=== PATIENT | male | born 1995 | race Caucasian/White ===

== ENCOUNTER 2016-07-15 20:11 | Emergency (ER) | payer BC ==
[~2016-07-15] VITALS: Ht 177.8 cm; Wt 73.3 kg
[2016-07-15 20:15] VITALS: BP 140/84; PULSE 84; RESP 18; TEMP 97.7; O2SAT 99
[2016-07-15] MEDS ORDERED: SODIUM CHLOR 0.9% 1000 ML INJ 1,000 ML IV ONE ×2 (20:45)
[2016-07-15] MEDS ORDERED: DEXAMETHASONE SOD PHOS 4 MG/ML VIAL IV PUSH ONE (20:45)
[2016-07-15] MEDS ORDERED: ONDANSETRON HCL 4 MG/2 ML VIAL IV PUSH ONE (20:45)
[2016-07-15] MEDS ORDERED: KETOROLAC TROMETHAMINE 30 MG/ML (IVP) VIAL IV PUSH ONE (20:45)
--- NOTE | 2016-07-15 20:51 | PD ---
HPI Chief Complaint: GI Complaint Time Seen by Provider: 20:38 Travel History International Travel<30 days: No Contact w/Intl Traveler<30days: No Traveled to known affect area: No History of Present Illness HPI 20-year-old male complaining of vomiting and sore throat. He went to an urgent care center yesterday and was told that he had mono. He is given prescription for Zofran but does not been able to hold it down. Having a sore throat and has not been able to drink very much. He says that he has vomited about 5 times. He denies abdominal pain. Says that he's been sick for about 5 days. He is generally healthy. He had a throat culture yesterday which was negative [facility] Social History Tobacco Use: No Allergies-Medications (Allergen,Severity, Reaction): Coded Allergies: Morphine (Verified Allergy, Severe, Anaphylaxis, 07/15/16) Reported Meds & Prescriptions Reported Meds & Active Scripts Active Reported Motrin Ib (Ibuprofen) 200 Mg Tab 200 Mg PO Q4H PRN Zofran (Ondansetron HCl) 4 Mg Tab 4 Mg PO Q6HR PRN Review of Systems General / Constitutional: Positive: Fever, Chills Eyes: No: Diploplia, Blurred Vision HENT: Positive: Sore Throat Cardiovascular: No: Chest Pain or Discomfort, Palpitations Respiratory: No: Cough, Shortness of Breath Gastrointestinal: Positive: Nausea, Vomiting Genitourinary: No: Urgency, Frequency Musculoskeletal: No: Myalgias Skin: No Rash Neurologic: No: Weakness Endocrine: No: Heat Intolerance, Cold Intolerance Hematologic/Lymphatic: No: Easy Bruising Physical Exam Narrative GENERAL: Well-developed male SKIN: Focused skin assessment warm/dry. HEAD: Atraumatic. Normocephalic. EYES: Pupils equal and round. No scleral icterus. No injection or drainage. ENT: No nasal bleeding or discharge. Mucous membranes pink and moist. Posterior pharynx is erythematous. Tonsils enlarged NECK: Trachea midline. No JVD. CARDIOVASCULAR: Regular rate and rhythm. No murmur appreciated. RESPIRATORY: No accessory muscle use. Clear to auscultation. Breath sounds equal bilaterally. GASTROINTESTINAL: Abdomen soft, non-tender, nondistended. Hepatic and splenic margins not palpable. MUSCULOSKELETAL: No obvious deformities. No clubbing. No cyanosis. No edema. NEUROLOGICAL: Awake and alert. No obvious cranial nerve deficits. Motor grossly within normal limits. Normal speech. PSYCHIATRIC: Appropriate mood and affect; insight and judgment normal. Data Data Last Documented VS Vital Signs Date Time Temp Pulse Resp B/P Pulse Ox O2 Delivery O2 Flow Rate FiO2 07/15/16 21:52 98 20 119/57 Room Air 98 07/15/16 20:15 97.7 99 Orders Complete Blood Count With Diff (07/15/16 20:45) Comprehensive Metabolic Panel (07/15/16 20:45) Monoscreen (07/15/16 20:45) Sodium Chlor 0.9% 1000 Ml Inj (Ns 1000 M (07/15/16 20:45) Sodium Chlor 0.9% 1000 Ml Inj (Ns 1000 M (07/15/16 20:45) Ondansetron Inj (Zofran Inj) (07/15/16 20:45) Dexamethasone Inj (Decadron Inj) (07/15/16 20:45) Ketorolac Inj (Toradol Inj) (07/15/16 20:45) Potassium Chloride (Kcl) (07/15/16 22:00) Ct Abd/Pel W Iv Contrast(Rout) (07/15/16 22:02) Iohexol 350 Inj (Omnipaque 350 Inj) (07/15/16 22:47) Labs Laboratory Tests Test 07/15/16 21:05 White Blood Count 13.4 TH/MM3 Red Blood Count 5.22 MIL/MM3 Hemoglobin 15.1 GM/DL Hematocrit 46.2 % Mean Corpuscular Volume 88.5 FL Mean Corpuscular Hemoglobin 29.0 PG Mean Corpuscular Hemoglobin 32.7 % Concent Red Cell Distribution Width 12.7 % Platelet Count 97 TH/MM3 Mean Platelet Volume 9.9 FL Neutrophils (%) (Auto) % Lymphocytes (%) (Auto) % Monocytes (%) (Auto) % Eosinophils (%) (Auto) % Basophils (%) (Auto) % Neutrophils # (Auto) TH/MM3 Lymphocytes # (Auto) TH/MM3 Monocytes # (Auto) TH/MM3 Eosinophils # (Auto) TH/MM3 Basophils # (Auto) TH/MM3 CBC Comment AUTO DIFF Differential Total Cells 100 Counted Neutrophils % (Manual) 17 % Lymphocytes % 56 % Monocytes % 10 % Neutrophils # (Manual) 2.3 TH/MM3 Differential Comment FINAL DIFF MANUAL Atypical Lymphocytes 17 % Platelet Estimate NORMAL Platelet Morphology Comment NORMAL Red Cell Morphology Comment NORMAL Sodium Level 138 MEQ/L Potassium Level 3.5 MEQ/L Chloride Level 103 MEQ/L Carbon Dioxide Level 24.5 MEQ/L Anion Gap 11 MEQ/L Blood Urea Nitrogen 9 MG/DL Creatinine 1.20 MG/DL Estimat Glomerular Filtration 78 ML/MIN Rate Random Glucose 95 MG/DL Calcium Level 9.0 MG/DL Total Bilirubin 3.5 MG/DL Aspartate Amino Transf 217 U/L (AST/SGOT) Alanine Aminotransferase 335 U/L (ALT/SGPT) Alkaline Phosphatase 344 U/L Total Protein 7.9 GM/DL Albumin 3.8 GM/DL Monoscreen POS MDM Medical Decision Making Medical Screen Exam Complete: Yes Emergency Medical Condition: Yes Medical Record Reviewed: Yes Differential Diagnosis Differential includes mononucleosis, splenomegaly, Narrative Course Patient does have abnormal liver function tests with bilirubin of 3.5, AST of [address] ALT of 335. CT scan T scan does not show any evidence of biliary obstruction. I believe he has hepatitis secondary to his mononucleosis. CT scan also shows splenomegaly. Explained to the patient I believe the hepatitis and splenomegaly is certainly contributing to his nausea. He does have prescription for Zofran. He'll be released with recommendations to continue the Zofran lots of fluids. Instructed to return if abdominal pain and is displaying could certainly rupture. Diagnosis Primary Impression: Mononucleosis Additional Impressions: Splenomegaly Hepatitis Disposition: 01 DISCHARGE HOME Condition: Stable Alex Del Cid MD Jul 15, 2016 20:51
[2016-07-15 21:27] LABS: HEMATOCRIT 46.2 % (39.0-51.0); MEAN CELL VOLUME 88.5 FL (80.0-100.0); MEAN CORPUSCULAR HGB CONC 32.7 % (32.0-36.0); PLATELET COUNT 97 TH/MM3 (150-450); RED BLOOD COUNT 5.22 MIL/MM3 (4.50-5.90); RED CELL DISTRIBUTION WIDTH 12.7 % (11.6-17.2); WHITE BLOOD COUNT 13.4 TH/MM3 (4.0-11.0)
[2016-07-15 21:48] LABS: CHLORIDE 103 MEQ/L (98-107); HEMO FLAGS AUTO DIFF; POTASSIUM 3.5 MEQ/L (3.5-5.1); SODIUM (NA) 138 MEQ/L (136-145)
[2016-07-15 21:52] VITALS: BP 119/57; PULSE 98; RESP 20
[2016-07-15 21:52] LABS: ANION GAP 11 MEQ/L (5-15); BICARBONATE 24.5 MEQ/L (21.0-32.0); BLOOD UREA NITROGEN 9 MG/DL (7-18)
[2016-07-15 21:55] LABS: ALT (GPT) 335 U/L (9-52); AST (GOT) 217 U/L (15-39); GLOMERULAR FILTRATION RATE 78 ML/MIN (>89)
[2016-07-15 21:56] LABS: TOTAL BILIRUBIN ADULT 3.5 MG/DL (0.2-1.0)
[2016-07-15 21:58] LABS: ALKALINE PHOSPHATASE 344 U/L (45-117)
[2016-07-15] MEDS ORDERED: POTASSIUM CHLORIDE 10 MEQ CONTROLLED RELEASE TAB PO ONE (22:00)
[2016-07-15 22:18] LABS: ATYPICAL LYMPHOCYTES 17 % (0-0); NEUTROPHIL # MANUAL DIFF 2.3 TH/MM3 (1.8-7.7); POLYS (SEG NEUTROPHILS) 17 % (16-70); WBC DIFF SAMPLE 100
[2016-07-15 22:19] LABS: PLATELET ESTIMATE SMEAR NORMAL (NORMAL); PLATELET MORPHOLOGY NORMAL (NORMAL); SCAN/DIFF FINAL DIFF MANUAL
[2016-07-15 22:30] VITALS: BP 123/64; PULSE 86; RESP 18; TEMP 98.4; O2SAT 98
[2016-07-15] MEDS ORDERED: MOTR200T4 PO (22:37)
[2016-07-15] MEDS ORDERED: ZOFR4TAB PO (22:37)
[2016-07-15] MEDS ORDERED: IOHEXOL 350 MG/ML 10 ML VIAL (for RAD DIAG) IV ONE (22:47)
--- NOTE | 2016-07-15 22:51 | RADHPO ---
EXAM DATE/TIME: 07/15/2016 22:22 [place] COMPARISON: No previous studies available for comparison. INDICATIONS : Nausea. Vomiting. Abnormal liver function test. IV CONTRAST: 100 cc Omnipaque 350 (iohexol) IV ORAL CONTRAST: No oral contrast ingested. RADIATION DOSE: 8.32 CTDIvol (mGy) MEDICAL HISTORY : None SURGICAL HISTORY : Appendectomy. ENCOUNTER: Initial ACUITY: 4 - 6 days PAIN SCALE: 8/10 LOCATION: Bilateral abdomen TECHNIQUE: Volumetric scanning of the abdomen and pelvis was performed. Using automated exposure control and ad justment of the mA and/or kV according to patient size, radiation dose was kept as low as reasonably achievable to obtain optimal diagnostic quality images. FINDINGS: LOWER LUNGS: The visualized lower lungs are clear. LIVER: Homogeneous density without lesion. There is no dilation of the biliary tree. No calcified gallston es. SPLEEN: Enlarged without lesion. Spleen measures 16.0 cm in AP dimension and 18.3 cm in craniocaudal dimensio n. PANCREAS: Within normal limits. KIDNEYS: Normal in size and shape. There is no mass, stone or hydronephrosis. ADRENAL GLANDS: Within normal limits. VASCULAR: There is no aortic aneurysm. BOWEL/MESENTERY: The stomach, small bowel, and colon demonstrate no acute abnormality. There is no free intraperitone al air or fluid. ABDOMINAL WALL: Within normal limits. RETROPERITONEUM: There is no lymphadenopathy. BLADDER: No wall thickening or mass. REPRODUCTIVE: Within normal limits. INGUINAL: There is no lymphadenopathy or hernia. MUSCULOSKELETAL: Within normal limits for patient age. CONCLUSION: 1. Splenomegaly. 2. No acute inflammatory process. Hermes Yusuf MD on July 15, 2016 at 22:47 Board Certified Radiologist. This report was verified electronically.
[2016-07-15 23:20] VITALS: BP 116/80; PULSE 84; RESP 17; TEMP 98.4; O2SAT 98
== END 2016-07-16 00:07 | disposition home or self-care (01) ==
LOC: PHED 20:11
DX: B27.90 Infectious mononucleosis, unspecified without complication (principal); R16.1 Splenomegaly, not elsewhere classified; K75.9 Inflammatory liver disease, unspecified
CPT/HCPCS: 74177; 80053; 85007; 85027; 86308; 96361; 96374; 96375; 99284; J1100; J1885; J2405; J7030; Q9967

== ENCOUNTER 2016-07-17 13:10 | Observation (INO) | payer BC, MEDICAID ==
[~2016-07-17] VITALS: Ht 177.8 cm; Wt 78.4 kg
[~2016-07-17 13:10] MED LIST: MOTR200T4 PO; ZOFR4TAB PO
[2016-07-17 13:14] VITALS: BP 136/85; PULSE 87; RESP 20; TEMP 97.7; O2SAT 98
--- NOTE | 2016-07-17 13:57 | PD ---
HPI Chief Complaint: GI Complaint Time Seen by Provider: 13:49 Travel History International Travel<30 days: No Contact w/Intl Traveler<30days: No Traveled to known affect area: No History of Present Illness HPI This 20-year-old male presents with complaint of sore throat and vomiting. This gentleman is known to have mono. He was a patient here on July 15. At that time the complaint was vomiting sore throat and fever. He was found at that time to have abnormal liver function tests with a bilirubin of 3.5 and an AST of 217. A CT scan of the abdomen and pelvis showed enlarged spleen at that time. He was given Decadron at that time for his throat. And he was released with prescription for Zofran. He has continued to vomit despite Zofran. And continued to complain of sore throat. PFSH Past Medical History Diminished Hearing: No Medical other: Yes (MONONUCLEOSIS) Immunizations Current: Yes (UTD, PER MOM) ?: Not Past Surgical History Appendectomy: Yes (2007;2009; 2012 total removal) Social History Alcohol Use: No Tobacco Use: No Substance Use: No Allergies-Medications (Allergen,Severity, Reaction): Coded Allergies: Morphine (Verified Allergy, Severe, Anaphylaxis, 07/17/16) Reported Meds & Prescriptions Reported Meds & Active Scripts Active Reported Motrin Ib (Ibuprofen) 200 Mg Tab 200 Mg PO Q4H PRN Zofran (Ondansetron HCl) 4 Mg Tab 4 Mg PO Q6HR PRN Review of Systems General / Constitutional: Positive: Fever, Chills Eyes: No: Diploplia, Blurred Vision HENT: Positive: Rhinitis, No: Headaches Cardiovascular: No: Chest Pain or Discomfort, Palpitations Respiratory: No: Cough, Shortness of Breath Gastrointestinal: Positive: Nausea, Vomiting Genitourinary: No: Frequency, Dysuria Musculoskeletal: No: Myalgias, Arthralgias Skin: No Rash, No Itching Neurologic: Positive: Weakness Hematologic/Lymphatic: No: Easy Bruising Physical Exam Narrative GENERAL: Well-developed male SKIN: Focused skin assessment warm/dry. HEAD: Atraumatic. Normocephalic. EYES: Pupils equal and round. No scleral icterus. No injection or drainage. ENT: No nasal bleeding or discharge. Mucous membranes pink and moist. Posterior pharynx shows the tonsils to be enlarged with yellow exudate NECK: Trachea midline. No JVD. There is considerable bilateral anterior cervical adenopathy CARDIOVASCULAR: Regular rate and rhythm. No murmur appreciated. RESPIRATORY: No accessory muscle use. Clear to auscultation. Breath sounds equal bilaterally. GASTROINTESTINAL: Abdomen soft, spleen is palpable MUSCULOSKELETAL: No obvious deformities. No clubbing. No cyanosis. No edema. NEUROLOGICAL: Awake and alert. No obvious cranial nerve deficits. Motor grossly within normal limits. Normal speech. PSYCHIATRIC: Appropriate mood and affect; insight and judgment normal. Data Data Last Documented VS Vital Signs Date Time Temp Pulse Resp B/P Pulse Ox O2 Delivery O2 Flow Rate FiO2 07/17/16 13:14 97.7 87 20 136/85 98 Orders Complete Blood Count With Diff (07/17/16 13:49) Comprehensive Metabolic Panel (07/17/16 13:49) Urinalysis - C+S If Indicated (07/17/16 13:49) Magnesium (Mg) (07/17/16 13:49) Sodium Chlor 0.9% 1000 Ml Inj (Ns 1000 M (07/17/16 14:00) Sodium Chlor 0.9% 1000 Ml Inj (Ns 1000 M (07/17/16 14:00) Ondansetron Inj (Zofran Inj) (07/17/16 14:00) Blood Culture (07/17/16 13:49) Lactic Acid (07/17/16 13:49) Admit Order (Ed Use Only) (07/17/16 14:48) Labs Laboratory Tests Test 07/17/16 14:00 White Blood Count 12.7 TH/MM3 Red Blood Count 4.89 MIL/MM3 Hemoglobin 14.7 GM/DL Hematocrit 42.8 % Mean Corpuscular Volume 87.3 FL Mean Corpuscular Hemoglobin 30.1 PG Mean Corpuscular Hemoglobin 34.4 % Concent Red Cell Distribution Width 12.7 % Platelet Count 102 TH/MM3 Mean Platelet Volume 9.2 FL Neutrophils (%) (Auto) 18.1 % Lymphocytes (%) (Auto) 66.9 % Monocytes (%) (Auto) 14.2 % Eosinophils (%) (Auto) 0.0 % Basophils (%) (Auto) 0.8 % Neutrophils # (Auto) 2.3 TH/MM3 Lymphocytes # (Auto) 8.5 TH/MM3 Monocytes # (Auto) 1.8 TH/MM3 Eosinophils # (Auto) 0.0 TH/MM3 Basophils # (Auto) 0.1 TH/MM3 CBC Comment AUTO DIFF Differential Total Cells 100 Counted Neutrophils % (Manual) 23 % Band Neutrophils % 2 % Lymphocytes % 48 % Monocytes % 4 % Neutrophils # (Manual) 3.2 TH/MM3 Differential Comment FINAL DIFF MANUAL Atypical Lymphocytes 23 % Platelet Estimate LOW Platelet Morphology Comment NORMAL Urine Collection Type CLEAN CATCH Urine Color DARK-YELLOW Urine Turbidity CLEAR Urine pH 5.5 Urine Specific [place] 1.016 Urine Protein TRACE mg/dL Urine Glucose (UA) NEG mg/dL Urine Ketones 15 mg/dL Urine Occult Blood NEG Urine Nitrite NEG Urine Bilirubin LARGE Urine Leukocyte Esterase NEG Urine RBC 0-3 /hpf Urine WBC 0-2 /hpf Urine Squamous Epithelial 0-5 /hpf Cells Urine Amorphous Sediment FEW Urine White Blood Cell Casts 0-2 /lpf Microscopic Urinalysis Comment CULT NOT INDICATED Sodium Level 140 MEQ/L Potassium Level 3.7 MEQ/L Chloride Level 103 MEQ/L Carbon Dioxide Level 27.3 MEQ/L Anion Gap 10 MEQ/L Blood Urea Nitrogen 7 MG/DL Creatinine 1.30 MG/DL Estimat Glomerular Filtration 71 ML/MIN Rate Random Glucose 93 MG/DL Lactic Acid Level 1.6 mmol/L Calcium Level 9.4 MG/DL Magnesium Level 1.8 MG/DL Total Bilirubin 4.1 MG/DL Aspartate Amino Transf 575 U/L (AST/SGOT) Alanine Aminotransferase 705 U/L (ALT/SGPT) Alkaline Phosphatase 361 U/L Total Protein 7.9 GM/DL Albumin 3.6 GM/DL [facility] Medical Decision Making Medical Screen Exam Complete: Yes Emergency Medical Condition: Yes Medical Record Reviewed: Yes Differential Diagnosis Differential includes mono, hepatitis, Narrative Course Bilirubin today is 4.1. He has worsening of his hepatic enzymes. He has failed outpatient treatment and will be admitted for hydration and pain control Diagnosis Primary Impression: Mononucleosis Additional Impression: Hepatitis Admitting Information Admitting Physician Requests: Admit Alex Del Cid MD Jul 17, 2016 13:56
[2016-07-17] MEDS ORDERED: ONDANSETRON HCL 4 MG/2 ML VIAL IV PUSH ONE (14:00)
[2016-07-17] MEDS ORDERED: SODIUM CHLOR 0.9% 1000 ML INJ 1,000 ML IV ONE ×2 (14:00)
[2016-07-17 14:12] LABS: BLOOD, URINE NEG (NEG); GLUCOSE,URINE NEG (NEG); KETONE, URINE 15 mg/dL (NEG); NITRITE,URINE NEG (NEG); PH, URINE 5.5 (5.0-8.5)
[2016-07-17 14:15] LABS: AUTOMATED NEUTROPHIL # 2.3 TH/MM3 (1.8-7.7); BASOPHIL # 0.1 TH/MM3 (0-0.2); BASOPHIL % 0.8 % (0.0-2.0); HEMATOCRIT 42.8 % (39.0-51.0); LYMPH % 66.9 % (9.0-44.0); LYMPHOCYTE # 8.5 TH/MM3 (1.0-4.8); MEAN CELL VOLUME 87.3 FL (80.0-100.0); MEAN CORPUSCULAR HEMOGLOBIN 30.1 PG (27.0-34.0); MEAN CORPUSCULAR HGB CONC 34.4 % (32.0-36.0); MONO % 14.2 % (0.0-8.0); NEUT % 18.1 % (16.0-70.0); PLATELET COUNT 102 TH/MM3 (150-450); RED BLOOD COUNT 4.89 MIL/MM3 (4.50-5.90); RED CELL DISTRIBUTION WIDTH 12.7 % (11.6-17.2); WHITE BLOOD COUNT 12.7 TH/MM3 (4.0-11.0)
[2016-07-17 14:18] LABS: METHOD OF COLLECTION CLEAN CATCH; URINE COLOR DARK-YELLOW (YELLW/STRAW)
[2016-07-17 14:19] LABS: CHLORIDE 103 MEQ/L (98-107); POTASSIUM 3.7 MEQ/L (3.5-5.1); RBC, URINE 0-3 /hpf (0-3); SODIUM (NA) 140 MEQ/L (136-145); SQUAMOUS EPITHELIAL CELL URINE 0-5 /hpf (0-5); WBC, URINE 0-2 /hpf (0-5)
[2016-07-17 14:20] LABS: COMMENT (UR) CULT NOT INDICATED; CULTURE IF INDICATED CULT NOT INDICATED; WHITE BLOOD CELL CAST, URINE 0-2 /lpf
[2016-07-17 14:21] LABS: HEMO FLAGS AUTO DIFF
[2016-07-17 14:23] LABS: ANION GAP 10 MEQ/L (5-15); BICARBONATE 27.3 MEQ/L (21.0-32.0); BLOOD UREA NITROGEN 7 MG/DL (7-18); MAGNESIUM 1.8 MG/DL (1.5-2.5)
[2016-07-17 14:43] LABS: ALKALINE PHOSPHATASE 361 U/L (45-117); ALT (GPT) 705 U/L (9-52); AST (GOT) 575 U/L (15-39); GLOMERULAR FILTRATION RATE 71 ML/MIN (>89); TOTAL BILIRUBIN ADULT 4.1 MG/DL (0.2-1.0)
[2016-07-17 14:44] LABS: ATYPICAL LYMPHOCYTES 23 % (0-0); BANDS 2 % (0-6); NEUTROPHIL # MANUAL DIFF 3.2 TH/MM3 (1.8-7.7); PLATELET ESTIMATE SMEAR LOW (NORMAL); PLATELET MORPHOLOGY NORMAL (NORMAL); POLYS (SEG NEUTROPHILS) 23 % (16-70); SCAN/DIFF FINAL DIFF MANUAL; WBC DIFF SAMPLE 100
[2016-07-17 15:12] VITALS: BP 147/74; PULSE 88; RESP 16; O2SAT 100
[2016-07-17] MEDS ORDERED: SODIUM CHLORIDE 0.9% FLUSH 10 ML FLUSH IV FLUSH PRN (15:30)
[2016-07-17] MEDS ORDERED: ACETAMINOPHEN 325 MG TAB PO PRN (15:30)
[2016-07-17] MEDS ORDERED: MAGNESIUM HYDROXIDE SUSP 30 ML CUP PO PRN (15:30)
[2016-07-17] MEDS ORDERED: DEXAMETHASONE SOD PHOS 4 MG/ML VIAL IV PUSH ONE (15:30)
[2016-07-17] MEDS: SODIUM CHLOR 0.9% 1000 ML INJ 1,000 ML IV SCH (15:30)
--- NOTE | 2016-07-17 15:34 | HHI.HP ---
[facility] Non-Staff Admission Diagnosis MONONUCLEOSIS, INTRACTABLE VOMITING Diagnoses: (1) Mononucleosis Diagnosis: Principal (2) Hepatitis Diagnosis: Principal (3) Splenomegaly Diagnosis: Principal (4) Leucocytosis Diagnosis: Principal Chief Complaint: Nausea, vomiting Travel History International Travel<30 Days: No Contact w/Intl Traveler <30 Da: No Traveled to Known Affected Are: No Sepsis Criteria SIRS Criteria (2 or more): WBC > 38586, < 4000 or > 10% bands History of Present Illness 20 year-old male with no chronic medical illnesses who presented to the hospital because of nausea, vomiting, sore throat, unable to eat. Patient patient states that his symptoms really started about 10 days ago with fever, chills, sore throat. Patient came to emergency department for evaluation. He was diagnosed with mono on 07/15/16. Patient had CT done at that time it does show splenomegaly. He did have elevated liver enzymes. Patient was discharged home from emergency department for symptomatic care. Patient was told to maintain bed rest, no contact sports. Patient went home and was having difficulty with eating. He was having severely sore throat, nausea, vomiting unable to keep anything down. Patient came back to emergency department for evaluation. Repeat laboratory studies show increase in liver enzymes. Patient has significantly swollen tonsils with exudates. The patient failed outpatient management with symptomatic treatment. Unable to eat and had persistent nausea and vomiting. Patient will require hospitalization for management. Review of Systems Constitutional: DENIES: Diaphoretic episodes, Fatigue, Fever, Weight gain, Weight loss, Chills, Dizziness, Change in appetite, Night Sweats Eyes: DENIES: Blurred vision, Diplopia, Eye inflammation, Eye pain, Vision loss , Double Vision Ears, nose, mouth, throat: COMPLAINS OF: Throat pain, Odynophagia, DENIES: Vertigo, Nasal discharge, Ear Pain, Running Nose, Sinus Pain Respiratory: DENIES: Apneas, Cough, Snoring, Wheezing, Hemoptysis, Sputum production, Shortness of breath Cardiovascular: DENIES: Chest pain, Palpitations, Syncope, Dyspnea on Exertion , Lower Extremity Edema, Orthopnea Gastrointestinal: COMPLAINS OF: Nausea, Vomiting, DENIES: Abdominal pain, Black stools, Bloody stools, Constipation, Diarrhea, Difficulty Swallowing, Anorexia Neurologic: DENIES: Abnormal gait, Headache, Localized weakness, Paresthesias, Seizures, Speech Problems, Tremor, Poor Balance Past Family Social History Past Medical History No chronic medical illnesses Past Surgical History Appendectomy Reported Medications Reported Meds & Active Scripts Active Reported Motrin Ib (Ibuprofen) 200 Mg Tab 200 Mg PO Q4H PRN Zofran (Ondansetron HCl) 4 Mg Tab 4 Mg PO Q6HR PRN Allergies: Coded Allergies: Morphine (Verified Allergy, Severe, Anaphylaxis, 07/17/16) Family History Reviewed and unremarkable for any heart disease, diabetes, cancer, seizures, stroke Social History Patient denies any tobacco, alcohol or illicit drugs Physical Exam Vital Signs Vital Signs Date Time Temp Pulse Resp B/P Pulse Ox O2 Delivery O2 Flow Rate FiO2 07/17/16 13:14 97.7 87 20 136/85 98 Physical Exam GENERAL: Well-developed, well-nourished, in no acute distress. alert and orientated. Patient ill-appearing HEENT: Head is normocephalic without any lesions or masses noted. Facial features are symmetric. Eyes: Pupils equal round reactive to light. Extraocular muscles are intact. Conjunctivae were clear. Oropharyngeal: Posterior pharynx with significant enlarged tonsils with exudative material noted mainly on the left tonsil. No uvular deviation. NECK: Supple without any masses. Trachea midline no deviation. No JVD, no bruits are appreciated CARDIAC: Regular rhythm, regular rate. S1/S2 are heard. No murmurs gallops or rubs. LUNGS: Clear to auscultation bilaterally. No wheeze, rhonchi or rales. No use of accessory muscles on inspiration or expiration. ABDOMEN: Soft, nontender. Nondistended. Bowel sounds heard in all 4 quadrants. No organomegaly or masses. Negative rebound, negative guarding EXTREMITIES: No edema, pulses are equal bilaterally. No cyanosis or clubbing NEUROLOGY: Mood and affect appear appropriate. Cranial nerves II through XII grossly intact. Muscle strength 5/5 in upper and lower extremities bilaterally. Deep tendon reflexes are 2+ in upper and lower extremities bilaterally. Laboratory Laboratory Tests Test 07/17/16 14:00 White Blood Count 12.7 Red Blood Count 4.89 Hemoglobin 14.7 Hematocrit 42.8 Mean Corpuscular Volume 87.3 Mean Corpuscular Hemoglobin 30.1 Mean Corpuscular Hemoglobin 34.4 Concent Red Cell Distribution Width 12.7 Platelet Count 102 Mean Platelet Volume 9.2 Neutrophils (%) (Auto) 18.1 Lymphocytes (%) (Auto) 66.9 Monocytes (%) (Auto) 14.2 Eosinophils (%) (Auto) 0.0 Basophils (%) (Auto) 0.8 Neutrophils # (Auto) 2.3 Lymphocytes # (Auto) 8.5 Monocytes # (Auto) 1.8 Eosinophils # (Auto) 0.0 Basophils # (Auto) 0.1 CBC Comment AUTO DIFF Differential Total Cells 100 Counted Neutrophils % (Manual) 23 Band Neutrophils % 2 Lymphocytes % 48 Monocytes % 4 Neutrophils # (Manual) 3.2 Differential Comment FINAL DIFF MANUAL Atypical Lymphocytes 23 Platelet Estimate LOW Platelet Morphology Comment NORMAL Urine Collection Type CLEAN CATCH Urine Color DARK-YELLOW Urine Turbidity CLEAR Urine pH 5.5 Urine Specific [place] 1.016 Urine Protein TRACE Urine Glucose (UA) NEG Urine Ketones 15 Urine Occult Blood NEG Urine Nitrite NEG Urine Bilirubin LARGE Urine Leukocyte Esterase NEG Urine RBC 0-3 Urine WBC 0-2 Urine Squamous Epithelial 0-5 Cells Urine Amorphous Sediment FEW Urine White Blood Cell Casts 0-2 Microscopic Urinalysis Comment CULT NOT INDICATED Sodium Level 140 Potassium Level 3.7 Chloride Level 103 Carbon Dioxide Level 27.3 Anion Gap 10 Blood Urea Nitrogen 7 Creatinine 1.30 Estimat Glomerular Filtration 71 Rate Random Glucose 93 Lactic Acid Level 1.6 Calcium Level 9.4 Magnesium Level 1.8 Total Bilirubin 4.1 Aspartate Amino Transf 575 (AST/SGOT) Alanine Aminotransferase 705 (ALT/SGPT) Alkaline Phosphatase 361 Total Protein 7.9 Albumin 3.6 Date/Time Procedure Status Source Growth 07/17/16 14:00 Aerobic Blood Culture Received Blood Peripheral Pending 07/17/16 14:00 Anaerobic Blood Culture Received Blood Peripheral Pending Result Diagram: 07/17/16 1400 07/17/16 1400 Assessment and Plan Assessment and Plan 20 year-old male who presents with known history of mono infection with sore throat, nausea, vomiting, inability to eat or tolerate fluids. Acute mononucleosis infection with associated liver involvement, splenomegaly, tonsillitis, nausea, vomiting, Continue supportive management Start IV fluids Continue Zofran for any nausea or vomiting Start Decadron for pharyngeal inflammation Clear liquid diet - pain control as needed, including standing Toradol. Liver enzyme elevation secondary to above Recent CT abdomen noted. Continue monitor liver enzymes DVT prevention low risk, early ambulation Written by Juaquin Corey, acting as scribe for Dr. Root on 07/17/16 at 15: 29. Discussed Condition With This note was transcribed by scribe Juaquin Corey. I, Dr. Venkatesh Root personally performed the history, physical exam, and medical decision making; and confirmed the accuracy of the information in the transcribed note. Authenticated by Dr. Venkatesh Root on 07/17/16 at 15:56. Problem Qualifiers (1) Leucocytosis: Qualified Code: D72.820 - Lymphocytosis Juaquin Corey Jul 17, 2016 15:34 Venkatesh Root DO Jul 17, 2016 15:57
[2016-07-17] MEDS ORDERED: traMADol HCL 50 MG TAB PO PRN ×2 (15:45)
[2016-07-17 17:00] VITALS: BP 147/89; PULSE 88; RESP 18; TEMP 99.5; O2SAT 97
[2016-07-17] MEDS: KETOROLAC TROMETHAMINE 30 MG/ML (IVP) VIAL IV PUSH SCH ×2 (17:58→23:24)
[2016-07-17 20:00] VITALS: BP 153/104; PULSE 75; RESP 18; TEMP 98.7; O2SAT 93
[2016-07-17] MEDS: SODIUM CHLORIDE 0.9% FLUSH 10 ML FLUSH IV FLUSH SCH (21:00)
[2016-07-17] MEDS: traMADol HCL 50 MG TAB PO PRN (23:23)
[2016-07-17] MEDS: PHENOL 1.4% SOLN 180 ML BTL OROPHARYNG PRN (23:24)
[2016-07-18] VITALS: BP 151/82; PULSE 88; RESP 20; TEMP 99.1; O2SAT 96
[2016-07-18] MEDS: SODIUM CHLOR 0.9% 1000 ML INJ 1,000 ML IV SCH ×3 (01:30→17:13)
[2016-07-18] MEDS: traMADol HCL 50 MG TAB PO PRN ×4 (04:49→21:39)
[2016-07-18] MEDS: KETOROLAC TROMETHAMINE 30 MG/ML (IVP) VIAL IV PUSH SCH ×4 (04:49→23:49)
[2016-07-18 06:45] LABS: HEMATOCRIT 39.1 % (39.0-51.0); MEAN CELL VOLUME 89.1 FL (80.0-100.0); MEAN CORPUSCULAR HEMOGLOBIN 30.5 PG (27.0-34.0); MEAN CORPUSCULAR HGB CONC 34.3 % (32.0-36.0); PLATELET COUNT 81 TH/MM3 (150-450); RED BLOOD COUNT 4.38 MIL/MM3 (4.50-5.90); RED CELL DISTRIBUTION WIDTH 13.1 % (11.6-17.2); WHITE BLOOD COUNT 11.1 TH/MM3 (4.0-11.0)
[2016-07-18 06:47] LABS: CHLORIDE 104 MEQ/L (98-107); POTASSIUM 3.5 MEQ/L (3.5-5.1); SODIUM (NA) 140 MEQ/L (136-145)
[2016-07-18 06:49] LABS: HEMO FLAGS AUTO DIFF
[2016-07-18 07:12] LABS: ALKALINE PHOSPHATASE 323 U/L (45-117); ALT (GPT) 550 U/L (9-52); ANION GAP 10 MEQ/L (5-15); AST (GOT) 301 U/L (15-39); BICARBONATE 26.5 MEQ/L (21.0-32.0); BLOOD UREA NITROGEN 7 MG/DL (7-18); GLOMERULAR FILTRATION RATE 113 ML/MIN (>89); TOTAL BILIRUBIN ADULT 3.1 MG/DL (0.2-1.0)
[2016-07-18 07:23] LABS: ATYPICAL LYMPHOCYTES 19 % (0-0); NEUTROPHIL # MANUAL DIFF 2.4 TH/MM3 (1.8-7.7); PLATELET ESTIMATE SMEAR NORMAL (NORMAL); PLATELET MORPHOLOGY NORMAL (NORMAL); POLYS (SEG NEUTROPHILS) 22 % (16-70); SCAN/DIFF FINAL DIFF MANUAL; WBC DIFF SAMPLE 100
--- NOTE | 2016-07-18 07:54 | HHI.PR ---
Subjective Remarks Patient seen and examined today with Dr. Root. Patient states that he has a mild improvement. Still having problems swallowing. He is tolerating liquids. Denies any fever, chills. Objective Vitals Vital Signs Date Time Temp Pulse Resp B/P Pulse Ox O2 Delivery O2 Flow Rate FiO2 07/18/16 00:00 99.1 88 20 151/82 96 07/17/16 20:00 98.7 75 18 153/104 93 07/17/16 18:55 18 07/17/16 17:00 99.5 88 18 147/89 97 07/17/16 15:12 88 16 147/74 100 Room Air 07/17/16 13:14 97.7 87 20 136/85 98 I/O 07/17/16 07/17/16 07/17/16 07/18/16 07/18/16 07/18/16 07:00 15:00 23:00 07:00 15:00 23:00 Intake Total 1975 ml 1660 ml Balance 1975 ml 1660 ml Intake Oral 860 ml IV Total 1975 ml 800 ml # Voids 3 # Bowel Movements 0 Result Diagram: 07/18/16 0615 07/18/16 0615 Objective Remarks GENERAL: Well-developed, well-nourished, in no acute distress. alert and orientated HEENT: Head is normocephalic without any lesions or masses noted. Facial features are symmetric. Eyes: Extraocular muscles are intact. Conjunctivae were clear. Oropharyngeal: Posterior pharynx with significantly enlarged tonsils and white exudate. Does appear to be mildly improved from yesterday NECK: Supple without any masses. Trachea midline no deviation. No JVD, significant anterior or posterior chain adenopathy CARDIAC: Regular rhythm, regular rate. S1/S2 are heard. No murmurs gallops or rubs. LUNGS: Clear to auscultation bilaterally. No wheeze, rhonchi or rales. No use of accessory muscles on inspiration or expiration. ABDOMEN: Soft, nontender. Nondistended. Bowel sounds heard in all 4 quadrants. No organomegaly or masses. Negative rebound, negative guarding EXTREMITIES: No edema, pulses are equal bilaterally. No cyanosis or clubbing NEUROLOGY: Mood and affect appear appropriate. Cranial nerves II through XII grossly intact. Moving all extremities, speech is clear Urinary Catheter: No Vascular Central Line Catheter: No A/P Assessment and Plan 20 year-old male who presents with known history of mono infection with sore throat, nausea, vomiting, inability to eat or tolerate fluids. Acute mononucleosis infection with associated liver involvement, splenomegaly, tonsillitis, nausea, vomiting, Continue supportive management Continue IV fluids, d/c if continues to tolerate PO. Continue Zofran for any nausea or vomiting Status post Decadron for pharyngeal inflammation advance clear liquid diet to soft diet as tolerated. - pain control as needed, Toradol and tramadol - rapid strep test pending. Liver enzyme elevation secondary to above, improving Recent CT abdomen noted. With splenomegaly and no acute inflammatory process Continue monitor liver enzymes Leukocytosis, improving continue monitor CBC Thrombocytopenia Likely secondary to splenomegaly. - follow CBC. DVT prevention low risk, early ambulation Written by Juaquin Corey, acting as scribe for Dr. Root on 07/18/16 at 07: 54. Discharge Planning This note was transcribed by scribe Juaquin Corey. I, Dr. Venkatesh Root personally performed the history, physical exam, and medical decision making; and confirmed the accuracy of the information in the transcribed note. Authenticated by Dr. Venkatesh Root on 07/18/16 at 12:48. Juaquin Corey Jul 18, 2016 07:54 Venkatesh Root DO Jul 18, 2016 12:48
[2016-07-18 08:00] VITALS: BP 151/97; PULSE 75; RESP 20; TEMP 97; O2SAT 98
[2016-07-18] MEDS: SODIUM CHLORIDE 0.9% FLUSH 10 ML FLUSH IV FLUSH SCH ×2 (09:11→20:39)
[2016-07-18] MEDS: ONDANSETRON HCL 4 MG/2 ML VIAL IVP PRN ×3 (10:54→21:40)
[2016-07-18 12:00] VITALS: BP 152/95; PULSE 65; RESP 18; TEMP 97.2; O2SAT 97
[2016-07-18 16:00] VITALS: BP 164/96; PULSE 68; RESP 18; TEMP 97.6; O2SAT 98
[2016-07-18 20:45] VITALS: BP 148/78; PULSE 70; RESP 18; TEMP 96.7; O2SAT 97
[2016-07-19 00:30] VITALS: BP 161/98; PULSE 83; RESP 20; TEMP 96.4; O2SAT 98
[2016-07-19] MEDS: SODIUM CHLOR 0.9% 1000 ML INJ 1,000 ML IV SCH (01:54)
[2016-07-19] MEDS: KETOROLAC TROMETHAMINE 30 MG/ML (IVP) VIAL IV PUSH SCH ×3 (05:08→17:43)
[2016-07-19] MEDS: traMADol HCL 50 MG TAB PO PRN (06:36)
[2016-07-19] MEDS: ONDANSETRON HCL 4 MG/2 ML VIAL IVP PRN (06:39)
[2016-07-19 07:21] LABS: HEMATOCRIT 39.8 % (39.0-51.0); MEAN CELL VOLUME 87.5 FL (80.0-100.0); MEAN CORPUSCULAR HEMOGLOBIN 29.8 PG (27.0-34.0); MEAN CORPUSCULAR HGB CONC 34.1 % (32.0-36.0); PLATELET COUNT 99 TH/MM3 (150-450); RED BLOOD COUNT 4.54 MIL/MM3 (4.50-5.90); RED CELL DISTRIBUTION WIDTH 12.8 % (11.6-17.2); WHITE BLOOD COUNT 11.7 TH/MM3 (4.0-11.0)
[2016-07-19 07:24] LABS: HEMO FLAGS AUTO DIFF
[2016-07-19 07:41] LABS: CHLORIDE 98 MEQ/L (98-107); POTASSIUM 3.4 MEQ/L (3.5-5.1); SODIUM (NA) 138 MEQ/L (136-145)
[2016-07-19 07:44] LABS: ANION GAP 13 MEQ/L (5-15); BICARBONATE 26.8 MEQ/L (21.0-32.0); BLOOD UREA NITROGEN 6 MG/DL (7-18)
[2016-07-19 07:47] LABS: ALT (GPT) 549 U/L (9-52); AST (GOT) 263 U/L (15-39); GLOMERULAR FILTRATION RATE 96 ML/MIN (>89)
[2016-07-19 07:48] LABS: TOTAL BILIRUBIN ADULT 3.2 MG/DL (0.2-1.0)
[2016-07-19 07:50] LABS: ALKALINE PHOSPHATASE 378 U/L (45-117)
[2016-07-19] MEDS ORDERED: POTASSIUM CHLORIDE 20 MEQ PWD PACKET PO ONE (08:00)
--- NOTE | 2016-07-19 08:02 | HHI.PR ---
Subjective Remarks Patient seen and examined today with Dr. Root. Patient states that he still having significant tenderness and swelling in his neck area. He is tolerating liquids, however he had an episode that he spit up liquid this morning. He doesn't describe it as retching. Objective Vitals Vital Signs Date Time Temp Pulse Resp B/P Pulse Ox O2 Delivery O2 Flow Rate FiO2 07/19/16 04:16 07/19/16 00:30 96.4 83 20 161/98 98 07/18/16 20:45 96.7 70 18 148/78 97 07/18/16 18:21 16 07/18/16 16:56 18 07/18/16 16:00 97.6 68 18 164/96 98 07/18/16 12:00 97.2 65 18 152/95 97 I/O 07/18/16 07/18/16 07/18/16 07/19/16 07/19/16 07/19/16 07:00 15:00 23:00 07:00 15:00 23:00 Intake Total 1660 ml 240 ml 1933 ml 755 ml Output Total 2 ml Balance 1660 ml 240 ml 1933 ml 753 ml Intake Oral 860 ml 240 ml IV Total 800 ml 1933 ml 755 ml Output Urine Total 2 ml # Voids 3 3 1 # Bowel Movements 0 Result Diagram: 07/19/16 0657 07/19/16 0657 Objective Remarks GENERAL: Well-developed, well-nourished, in no acute distress. alert and orientated HEENT: Head is normocephalic without any lesions or masses noted. Facial features are symmetric. Eyes: Extraocular muscles are intact. Conjunctivae were clear. Oropharyngeal: Posterior pharynx with significantly enlarged tonsils but improving. Continues to improve daily NECK: Supple without any masses. Trachea midline no deviation. No JVD, significant anterior or posterior chain adenopathy CARDIAC: Regular rhythm, regular rate. S1/S2 are heard. No murmurs gallops or rubs. LUNGS: Clear to auscultation bilaterally. No wheeze, rhonchi or rales. No use of accessory muscles on inspiration or expiration. ABDOMEN: Soft, nontender. Nondistended. Bowel sounds heard in all 4 quadrants. No organomegaly or masses. Negative rebound, negative guarding EXTREMITIES: No edema, pulses are equal bilaterally. No cyanosis or clubbing NEUROLOGY: Mood and affect appear appropriate. Cranial nerves II through XII grossly intact. Moving all extremities, speech is clear Urinary Catheter: No Vascular Central Line Catheter: No A/P Assessment and Plan 20 year-old male who presents with known history of mono infection with sore throat, nausea, vomiting, inability to eat or tolerate fluids. Acute mononucleosis infection with associated liver involvement, splenomegaly, tonsillitis, nausea, vomiting, Continue supportive management Continue IV fluids Continue Zofran for any nausea or vomiting Status post Decadron for pharyngeal inflammation Clear liquid diet - pain control as needed, Toradol and tramadol Liver enzyme elevation secondary to above, improving Recent CT abdomen noted. With splenomegaly and no acute inflammatory process Continue monitor liver enzymes, which are improving slowly Leukocytosis, improving continue monitor CBC Thrombocytopenia, improving Likely secondary to splenomegaly, acute liver injury from mononucleosis Continue to monitor DVT prevention low risk, early ambulation Written by Juaquin Corey, acting as scribe for Dr. Root on 07/19/16 at 08: 02. Discharge Planning This note was transcribed by scribe Juaquin Corey. I, Dr. Venkatesh Root personally performed the history, physical exam, and medical decision making; and confirmed the accuracy of the information in the transcribed note. Authenticated by Dr. Venkatesh Root on 07/19/16 at 13:40. Juaquin Corey Jul 19, 2016 08:02 Venkatesh Root DO Jul 19, 2016 13:40
[2016-07-19 08:13] LABS: ATYPICAL LYMPHOCYTES 17 % (0-0); BANDS 7 % (0-6); NEUTROPHIL # MANUAL DIFF 3.5 TH/MM3 (1.8-7.7); PLATELET ESTIMATE SMEAR LOW (NORMAL); PLATELET MORPHOLOGY NORMAL (NORMAL); POLYS (SEG NEUTROPHILS) 23 % (16-70); SCAN/DIFF FINAL DIFF MANUAL; WBC DIFF SAMPLE 100
[2016-07-19 08:41] VITALS: BP 160/102; PULSE 79; RESP 15; TEMP 96.6; O2SAT 98
[2016-07-19] MEDS: NS + KCL 20 MEQ INJ 1,000 ML IV SCH ×2 (08:43→18:04)
[2016-07-19] MEDS: PHENOL 1.4% SOLN 180 ML BTL OROPHARYNG PRN (09:08)
[2016-07-19] MEDS: SODIUM CHLORIDE 0.9% FLUSH 10 ML FLUSH IV FLUSH SCH ×2 (09:08→21:00)
[2016-07-19] MEDS ORDERED: DEXAMETHASONE SOD PHOS 4 MG/ML VIAL IV PUSH ONE ×2 (10:30→16:30)
[2016-07-19] MEDS ORDERED: HYDROmorphone HCL PF 1 MG/ML VIAL IV PUSH ONE (10:30)
[2016-07-19 13:19] VITALS: BP 164/95; PULSE 79; RESP 14; TEMP 97.3; O2SAT 96
[2016-07-19] MEDS ORDERED: HYDROmorphone HCL PF 1 MG/ML VIAL IV PUSH PRN (15:00)
[2016-07-19 17:45] VITALS: BP 152/88; PULSE 97; RESP 15; TEMP 97.3; O2SAT 96
[2016-07-19 20:43] VITALS: BP 138/90; PULSE 105; RESP 16; TEMP 98.5; O2SAT 94
[2016-07-19 20:45] VITALS: BP 153/83; PULSE 68; RESP 16; TEMP 97.2; O2SAT 96
[2016-07-20] MEDS: KETOROLAC TROMETHAMINE 30 MG/ML (IVP) VIAL IV PUSH SCH ×3 (00:09→12:02)
[2016-07-20] MEDS: traMADol HCL 50 MG TAB PO PRN ×2 (00:09→06:32)
[2016-07-20 00:19] VITALS: BP 151/89; PULSE 81; RESP 18; TEMP 97; O2SAT 95
[2016-07-20] MEDS: NS + KCL 20 MEQ INJ 1,000 ML IV SCH (03:08)
[2016-07-20 07:50] LABS: ALKALINE PHOSPHATASE 441 U/L (45-117); ALT (GPT) 467 U/L (9-52); ANION GAP 10 MEQ/L (5-15); AST (GOT) 169 U/L (15-39); BICARBONATE 28.5 MEQ/L (21.0-32.0); BLOOD UREA NITROGEN 7 MG/DL (7-18); CHLORIDE 102 MEQ/L (98-107); GLOMERULAR FILTRATION RATE 112 ML/MIN (>89); POTASSIUM 4.3 MEQ/L (3.5-5.1); SODIUM (NA) 140 MEQ/L (136-145); TOTAL BILIRUBIN ADULT 2.7 MG/DL (0.2-1.0)
[2016-07-20] MEDS ORDERED: PENI500T PO (09:00)
--- NOTE | 2016-07-20 09:00 | HHI.DCPOC ---
Discharge Care Plan Diagnosis: (1) Mononucleosis (2) Leucocytosis (3) Hepatitis Goals to Promote Your Health * To prevent worsening of your condition and complications * To maintain your health at the optimal level Directions to Meet Your Goals Take your medications as prescribed Follow your dietary instruction Follow activity as directed Keep your appointments as scheduled Take your immunizations and boosters as scheduled If your symptoms worsen call your PCP, if no PCP go to Urgent Care Center or Emergency Room Smoking is Dangerous to Your Health. Avoid second hand smoke Call the 24-hour hour crisis hotline for domestic abuse at Juaquin Corey Jul 20, 2016 09:00
[2016-07-20 09:16] VITALS: BP 150/97; PULSE 66; RESP 15; TEMP 96.6; O2SAT 99
--- NOTE | 2016-07-20 09:19 | HHI.DS ---
Discharge Summary Admission Date Jul 17, 2016 at 14:49 Discharge Date: Jul 20, 2016 Admitting Diagnosis MONONUCLEOSIS, INTRACTABLE VOMITING (1) Mononucleosis ICD Code: B27.90 Diagnosis: Principal (2) Hepatitis ICD Code: K75.9 Diagnosis: Principal (3) Splenomegaly ICD Code: R16.1 Diagnosis: Principal (4) Leucocytosis ICD Code: D72.829 Diagnosis: Principal Procedures None Brief History - From Admission 20 year-old male with no chronic medical illnesses who presented to the hospital because of nausea, vomiting, sore throat, unable to eat. Patient patient states that his symptoms really started about 10 days ago with fever, chills, sore throat. Patient came to emergency department for evaluation. He was diagnosed with mono on 07/15/16. Patient had CT done at that time it does show splenomegaly. He did have elevated liver enzymes. Patient was discharged home from emergency department for symptomatic care. Patient was told to maintain bed rest, no contact sports. Patient went home and was having difficulty with eating. He was having severely sore throat, nausea, vomiting unable to keep anything down. Patient came back to emergency department for evaluation. Repeat laboratory studies show increase in liver enzymes. Patient has significantly swollen tonsils with exudates. The patient failed outpatient management with symptomatic treatment. Unable to eat and had persistent nausea and vomiting. Patient will require hospitalization for management. CBC/BMP: 07/19/16 0657 07/20/16 0658 Significant Findings Laboratory Tests Test 07/17/16 07/18/16 07/19/16 07/20/16 14:00 06:15 06:57 06:58 White Blood Count 12.7 TH/MM3 11.1 TH/MM3 11.7 TH/MM3 (4.0-11.0) (4.0-11.0) (4.0-11.0) Platelet Count 102 TH/MM3 81 TH/MM3 99 TH/MM3 (150-450) (150-450) (150-450) Lymphocytes (%) (Auto) 66.9 % (9.0-44.0) Monocytes (%) (Auto) 14.2 % (0.0-8.0) Lymphocytes # (Auto) 8.5 TH/MM3 (1.0-4.8) Monocytes # (Auto) 1.8 TH/MM3 (0-0.9) Lymphocytes % 48 % (9-44) 49 % (9-44) Atypical Lymphocytes 23 % (0-0) 19 % (0-0) 17 % (0-0) Platelet Estimate LOW (NORMAL) LOW (NORMAL) Urine Color DARK-YELLOW (YELLW/STRAW) Urine Ketones 15 mg/dL (NEG) Urine Bilirubin LARGE (NEG) Estimat Glomerular Filtration 71 ML/MIN (>89) Rate Total Bilirubin 4.1 MG/DL 3.1 MG/DL 3.2 MG/DL 2.7 MG/DL (0.2-1.0) (0.2-1.0) (0.2-1.0) (0.2-1.0) Aspartate Amino Transf 575 U/L (15-39) 301 U/L (15-39) 263 U/L (15-39) 169 U/L ( 15-39) (AST/SGOT) Alanine Aminotransferase 705 U/L (9-52) 550 U/L (9-52) 549 U/L (9-52) 467 U/L (9 -52) (ALT/SGPT) Alkaline Phosphatase 361 U/L 323 U/L 378 U/L 441 U/L (45-117) (45-117) (45-117) (45-117) Red Blood Count 4.38 MIL/MM3 (4.50-5.90) Monocytes % 10 % (0-8) 11 % (0-8) Albumin 2.9 GM/DL 3.1 GM/DL 3.0 GM/DL (3.4-5.0) (3.4-5.0) (3.4-5.0) Band Neutrophils % 7 % (0-6) Potassium Level 3.4 MEQ/L (3.5-5.1) Blood Urea Nitrogen 6 MG/DL (7-18) Calcium Level 8.2 MG/DL (8.5-10.1) Random Glucose 119 MG/DL (74-106) PE at Discharge GENERAL: Well-developed, well-nourished, in no acute distress. alert and orientated HEENT: Head is normocephalic without any lesions or masses noted. Facial features are symmetric. Eyes: Extraocular muscles are intact. Conjunctivae were clear. Oropharyngeal: Posterior pharynx with significantly enlarged tonsils but improving. Continues to improve daily NECK: Supple without any masses. Trachea midline no deviation. No JVD, significant anterior or posterior chain adenopathy CARDIAC: Regular rhythm, regular rate. S1/S2 are heard. No murmurs gallops or rubs. LUNGS: Clear to auscultation bilaterally. No wheeze, rhonchi or rales. No use of accessory muscles on inspiration or expiration. ABDOMEN: Soft, nontender. Nondistended. Bowel sounds heard in all 4 quadrants. No organomegaly or masses. Negative rebound, negative guarding EXTREMITIES: No edema, pulses are equal bilaterally. No cyanosis or clubbing NEUROLOGY: Mood and affect appear appropriate. Cranial nerves II through XII grossly intact. Moving all extremities, speech is clear Pt update on day of discharge The pt was feeling better and wanted to go home. His mother was at the bedside. Discussed with nursing. Hospital Course 20 year-old male who originally presented to the emergency department on July 15, 2016 and was diagnosed with mononucleosis at the time. He is discharged home with outlining supportive care management. Patient went home and has significantly sore throat, was able to eat or drink anything. Had persistent nausea and vomiting so he be presented to the hospital on 07/17/16. Patient was found to have acute abnormalities with significantly elevated liver enzymes, leukocytosis, signs of dehydration. Patient failed outpatient management for mononucleosis and was admitted the hospital for continued management and care. Patient was admitted with IV fluids, pain control. Clear liquid diet was started. Continue monitor the liver enzymes which did improve on a daily basis. Patient had pain control adjusted during his stay so he could be comfortable and tolerate eating and drinking. Further testing was performed which did indicate questionable beta colonies during a strep screen. Patient was started on penicillin V for management. Culture was negative for strep and penicillin was discontinued. Patient clinically improved at this time. Liver enzymes are decreasing appropriately. Patient is tolerating liquids and solids at this time. Patient feels comfortable with going home. Patient was notified that if his symptoms progress or get worse or he is unable to eat or drink anything that he should return the hospital for reevaluation. He should follow-up with his primary medical doctor within a week and have follow-up laboratory studies. Pt Condition on Discharge: Stable Discharge Disposition: Discharge Home Discharge Time: > 30 minutes Discharge Instructions DIET: Follow Instructions for: As Tolerated, No Restrictions Activities you can perform: Regular-No Restrictions Activities to Avoid: Driving for 24 hrs Follow up Referrals: PCP Follow-up - 1 Week New Orders: CBC WITH DIFF - 2-3 Days @ [facility] COMP MET PROF (CMP) - 2-3 Days @ [facility] New Medications: Penicillin V Potassium (Penicillin V Potassium) 500 Mg Tab 500 MG PO Q8H pharyngitis Days 10 TAB Continued Medications: Ibuprofen (Motrin Ib) 200 Mg Tab 200 MG PO Q4H PRN FEVER Ref 0 TAB Ondansetron (Zofran) 4 Mg Tab 4 MG PO Q6HR PRN NAUSEA OR VOMITING Ref 0 TAB Additional Information Written by Juaquin Corey, acting as scribe for Dr. Root on 07/20/16 at 09: 02. This note was transcribed by scribe Juaquin Corey. I, Dr. Venkatesh Root personally performed the history, physical exam, and medical decision making; and confirmed the accuracy of the information in the transcribed note. Authenticated by Dr. Venkatesh Root on 07/20/16 at 15:09. Juaquin Corey Jul 20, 2016 09:19 Venkatesh Root DO Jul 20, 2016 15:10
[2016-07-20] MEDS ORDERED: PENICILLIN V POTASSIUM 500 MG TAB PO SCH (10:00)
[2016-07-20] MEDS ORDERED: ULTR50TA5 PO (10:03)
[2016-07-20] MEDS: SODIUM CHLORIDE 0.9% FLUSH 10 ML FLUSH IV FLUSH SCH (12:02)
== END 2016-07-20 15:10 | disposition home or self-care (01) ==
LOC: PHED 13:10 → PHEDA 14:49 → INTOOBSV 14:49 → PH3A 16:10
PROVIDERS: ADMIT Hospitalist; ATTEND Hospitalist
DX: B27.89 Other infectious mononucleosis with other complication (principal); J03.90 Acute tonsillitis, unspecified; K75.9 Inflammatory liver disease, unspecified; R16.1 Splenomegaly, not elsewhere classified; D72.829 Elevated white blood cell count, unspecified; D69.59 Other secondary thrombocytopenia; Z88.5 Allergy status to narcotic agent
CPT/HCPCS: 80053; 81001; 83605; 83735; 85007; 85027; 87040; 87081; 87880; 96361; 96374; 99284; G0378; J1100; J1170; J1885; J2405; J3480; J7030